=== PATIENT | male | born 1985 | race Hispanic/Latino ===

== ENCOUNTER 2018-07-30 07:56 | Emergency (ER) | payer SELFPAY ==
[~2018-07-30] VITALS: Ht 170.2 cm; Wt 108.9 kg
[~2018-07-30 07:56] MED LIST: ADDERALL 30 MG30 MG PO
[2018-07-30] MEDS ORDERED: EYE IRRIGATION (OPTH) 120 ML BTL ONE (08:13)
[2018-07-30] MEDS ORDERED: TETRACAINE HCL 0.5% OPTH SOLN 4 ML BTL ONE (08:13)
[2018-07-30] MEDS ORDERED: FLUORESCEIN SOD(OPTH) 1 MG STRP OP ONE (08:15)
[2018-07-30] MEDS ORDERED: TETRACAINE HCL 0.5% OPTH SOLN 4 ML BTL OP ONE (08:15)
[2018-07-30] MEDS ORDERED: EYE IRRIGATION (OPTH) 120 ML BTL OP ONE (08:15)
[2018-07-30] MEDS ORDERED: TETANUS/DIPHTHERIA TOX ADULT 0.5 ML SYR IM ONE (08:45)
[2018-07-30] MEDS ORDERED: TOBRAMYCIN 0.3% OPTH OINT 3.5 GM TUBE ONE (09:15)
[2018-07-30] MEDS ORDERED: TOBRAMYCIN/DEXAMETHASONE(OPTH) 3.5 GM TUBE OS ONE (09:15)
[2018-07-30] MEDS ORDERED: TETANUS/DIPHTHERIA TOX ADULT 0.5 ML SYR ONE (09:15)
== END 2018-07-30 09:40 | disposition home or self-care (01) ==
LOC: ER 07:56
DX: S05.02XA Injury of conjunctiva and corneal abrasion without foreign body, left eye, initial encounter (principal); Y99.0 Civilian activity done for income or pay
CPT/HCPCS: 90471; 90714; 99283